=== PATIENT | male | born 1985 | race Caucasian/White ===

== ENCOUNTER 2020-03-24 17:01 | Outpatient (REF) | payer OTHER, SELFPAY | END 2020-03-24 17:02 | disposition home or self-care (01) | LOC: HO.LAB 17:01 | PROVIDERS: Visit Provider Internal Medicine | DX: Z20.828 Contact with and (suspected) exposure to other viral communicable diseases (principal) | CPT/HCPCS: 87635 ==

== ENCOUNTER 2022-03-20 15:08 | Emergency (ER) | payer OTHER, SELFPAY ==
--- NOTE | ~2022-03-20 | XR_ITS ---
EXAMINATION: XR CHEST CLINICAL INFORMATION: Status post fall with chest trauma. COMPARISON: 04/20/2019 chest radiographs. TECHNIQUE: Frontal view of the chest was obtained. FINDINGS: No significant abnormality is noted involving the heart, lungs, mediastinum, bony thorax or soft tissues. XR/XR chest 1V IMPRESSION: No acute cardiopulmonary process.
--- NOTE | ~2022-03-20 | XR_ITS ---
EXAMINATION: XR KNEE, RIGHT CLINICAL INFORMATION: Right knee pain status post fall. COMPARISON: None TECHNIQUE: Four views of the right knee. FINDINGS: Bones and soft tissues are normal. No fracture or joint effusion. Alignment is anatomic. Joint spaces are well maintained. No abnormal soft tissue calcification. XR/XR knee RT 4V IMPRESSION: Unremarkable right knee.
--- NOTE | ~2022-03-20 | CT_ITS ---
EXAMINATION: NONCONTRAST HEAD CT NONCONTRAST CERVICAL SPINE CT INDICATION INFORMATION: Fall with head strike and loss of consciousness. Neck pain COMPARISON: None TECHNIQUE: Separate noncontrast CT examinations of the head and cervical spine were performed. Coronal and sagittal images were created for each examination at the technologist workstation. This CT examination was performed using dose optimization techniques as appropriate, variously including the following: *Automated exposure control *Adjustment of mA and/or kV according to patient size (this includes techniques or standardized protocols for targeted exams where dose is matched to indication/reason for exam; i.e. extremities or head) *Use of iterative reconstruction technique DLP: 1351 mGy-cm FINDINGS: HEAD: No intra or extra-axial fluid collection, hemorrhage, or mass. No ventriculomegaly. No midline shift or herniation. Basal cisterns are patent. Moody-white matter differentiation is maintained. No territorial encephalomalacia. No significant volume loss. There is no abnormal attenuation within the brain parenchyma. No calvarial fracture or soft tissue abnormality. No mucosal thickening in the left maxillary antrum. Mastoid air cells are normally aerated. CERVICAL SPINE: Alignment: Straightening of the normal cervical lordosis. No subluxation. Vertebra: No acute fracture. No prevertebral soft tissue swelling. Degenerative disc disease: Mild cervical spondylosis at C4-C5 with minimal disc height loss and endplate proliferative change. Intervertebral disc heights otherwise maintained. Other findings: Visualized lung apices are clear. Couple small subcentimeter hypodense nodules or cysts noted in the right thyroid lobe of no clinical significance. No cervical lymphadenopathy identified. CT/CT cervical spine wo IV con IMPRESSION: 1. No intracranial hemorrhage or calvarial fracture. 2. No subluxation or acute cervical spine fracture.
--- NOTE | ~2022-03-20 | XR_ITS ---
EXAMINATION: XR HAND, LEFT CLINICAL INFORMATION: Injury with pain COMPARISON: None TECHNIQUE: PA, lateral, and oblique views of the left hand. FINDINGS: The bones and soft tissues are normal. No fracture. Alignment is anatomic. Joint spaces are maintained. No erosions or soft tissue calcifications. XR/XR hand LT 2V IMPRESSION: No acute osseous injury.
--- NOTE | ~2022-03-20 | XR_ITS ---
EXAMINATION: XR ELBOW, LEFT CLINICAL INFORMATION: Left elbow pain status post fall. COMPARISON: None TECHNIQUE: AP, lateral, and oblique views of the left elbow. FINDINGS: No acute fracture or dislocation. The joint spaces are unremarkable. There is no joint effusion. Small posterior olecranon spur. The soft tissues are unremarkable. XR/XR elbow LT min 3V IMPRESSION: Small degenerative posterior olecranon spur without other significant abnormality.
--- NOTE | ~2022-03-20 | XR_ITS ---
EXAMINATION: XR HIP, RIGHT CLINICAL INFORMATION: Right hip pain. COMPARISON: None TECHNIQUE: Two views of the right hip. FINDINGS: Bones and soft tissues are normal. No fracture. Alignment is anatomic. Hip joint space is maintained. XR/XR hip RT w PEL1V IMPRESSION: Unremarkable right hip.
[2022-03-20 16:02] VITALS: BP 166/89; PULSE 86; RESP 18; TEMP 36.4; O2SAT 98; BMI 26.6
--- NOTE | 2022-03-20 16:28 | ED_ITS ---
HPI - Fall General Chief Complaint: Fall Stated Complaint: left pinky injured Time Seen by Provider: 03/20/22 16:25 Source: patient Mode of arrival: ambulatory Limitations: no limitations History of Present Illness HPI Narrative: 37 year old male no significant medical history presents to the emergency department status post fall down 8-10 stairs stairs yesterday. Patient is complaining of head, neck, right knee, left elbow and left pinky pain status post fall. Patient tells me he was walking down the stairs, slipped fell backwards hitting his head with loss of consciousness for a brief moment, he tells me he thinks he landed on his hand experiencing pain to his left pinky, tells me he think he primarily landed on left side. He tells me pain is worse with movement better at rest. Patient is also reporting pain of the R. knee and L elbow again worse with movement better at rest. This time patient endorses diffuse headache w/ intermittent blurred vision ,tells me its normal now. But denies dizziness. Patient is not on blood thinners. Patient denies chest pain, shortness of breath, nausea, vomiting, abdominal pain, weakness. GCS of 15 NIH stroke scale negative Related Data Previous Rx's Medication Instructions Recorded cyclobenzaprine 10 mg tablet 10 mg PO BEDTIME PRN muscle spasm 03/20/22 #7 tabs lidocaine 5 % topical patch 1 patch topical DAILY PRN pain #15 03/20/22 ea Allergies Allergy/AdvReac Type Severity Reaction Status Date / Time No Known Allergies Allergy Unverified 02/18/20 15:46 Review of Systems Review of Systems: Constitutional : No Weight loss, No Fever, No Chills, No Fatigue, No Malaise ENT/Mouth : No sore throat, No Rhinorrhea Eyes: No Eye Pain, No Swelling, No Redness, + intermittent blurred vision Cardiovascular : No Chest Pain, No SOB, No Dyspnea on Exertion, No Orthopnea, No Edema, No Palpitations Respiratory : No Cough, No Sputum, No Wheezing Gastrointestinal : No Nausea, No Vomiting, No Diarrhea, No Constipation, No abdominal Pain, No Hematochezia, No Melena Genitourinary : No Dysuria, No Urinary Frequency, No Hematuria, Musculoskeletal : + joint pain, No Myalgias, + Joint Swelling Skin : No Skin Lesions, No rash Neuro : No Weakness, No Numbness, No Dizziness, + Headache Psych : No Anxiety/Panic, No Depression All other systems reviewed and are negative Yes all other systems are reviewed and are negative [facility] Past Medical History Attestation statement: The following information was validated with the patient. Source: old records reviewed and nursing notes reviewed Social History Social History Alcohol intake: former Patient Tobacco Use Status: Current everyday Tobacco user Smoked in Last 30 Days: Yes Use of substances other than those prescribed or required for medical reasons: No Advance Directives: No Advance Directives Information Provided: No Physical Exam Vital Signs: Vital Signs: Last Vital Signs Temp 98.4 F 03/20/22 18:24 Pulse 90 03/20/22 18:24 Resp 16 03/20/22 18:24 BP 168/102 H 03/20/22 18:24 Pulse Ox 98 03/20/22 18:24 O2 Del Method 03/20/22 18:24 BMI result Body Mass Index 26.6 vss Appearance: Alert.? Oriented X3.? No acute distress.? Head: Normocephalic, atraumatic, no step-offs or deformities Eyes: Pupils equal, round and reactive to light.? ENT: Pharynx normal.? Neck: Normal inspection.? Neck supple.? CVS: Normal heart rate and rhythm.? Pulses normal.? Respiratory: No respiratory distress.? Breath sounds normal.? Abdomen: Soft and nontender.? Skin: Skin warm and dry.? Normal skin color.? Normal skin turgor.? Extremities: No lower extremity edema.? No calf ttp. 5/5 strength to bilateral upper and lower extremities normal range of motion to bilateral hips, knees, elbows, shoulders. No point tenderness to any of the affected body parts. 2+ radial pulses equal bilateral. 2+ dorsalis pedis, posterior tibialis, anterior tibialis pulses equal bilateral. Normal popliteal pulses. Normal sensation to bilateral lower extremities and upper extremities. Left pinky with some overlying swelling and painful range of motion + subjective findings patient reports pain with range of motion of right knee, left elbow left pinky. Back: No midline tenderness, no C-spine tenderness, full range of motion, no CVA tenderness bilaterally Neuro: Oriented X 3.? No motor deficit.? No sensory deficit. CN 2-12 intact . Patient ambulating with steady gait normal coordination. No saddle paresthesias, normal [id number], [id number]. Normal Romberg and pronator drift. Course Reevaluation(s) Reevaluation #1: Xray of the chest, elbow, hand, hip/pelvis, knee with no acute findings. Time: 17:28 Reevaluation #2: Ct of head and neck pending. Patients neuro still non focal no new complaints ambulatory w/o diffiuculty in department. Sign out to NASIM shelton. Time: 18:44 MDM - Fall MDM Narrative Medical decision making narrative: [id number] 37-year-old male presents status post fall ann marie 8-10 stairs complaining of headache, neck pain, left-sided elbow and pinky pain and right-sided knee pain. Patient does report head strike with loss of consciousness. Not on blood thinners. This occurred yesterday. PE Left pinky with some overlying swelling and painful range of motion + subjective findings patient reports pain with range of motion of right knee, left elbow left pinky. GCS of 15 NIH stroke scale negative. Neuro nonfocal, cerebellar intact. RRR. Lungs clear. Abd soft nontender non distended. Unlikely acute ligament or tendon tear. Lilkey sprain/ strain. No signs of pneumothorax or flail chest. Plan- xrays, will obtain ct of head and neck. No indication for scans of chest abd and pelvis at this time. No evidence of trauma to these areas. Will rule out intracranial hemorrhage cervical fractures, dislocations or traumatic subluxations. Will rule out fractures or dislocations of knee, pelvis, elbow. Medical Records Attestation: I reviewed the patient's medical records. Lab Data Attestation: I reviewed the patient's lab results. Critical Care Time Critical Care Time Critical Care Time: No Discharge Plan Discharge Clinical Impression: Strain of left little finger, Knee pain, Elbow pain, Fall, Headache, Hip pain, Concussion with loss of consciousness Patient Disposition: Home, Self-Care Instructions: Finger Sprain (ED), Post Concussion Syndrome (ED) Additional Instructions: Take your medications as prescribed. If you were prescribed antibiotics today, it is important that you take your medication to their entirety, do not skip any doses, do not finish them early. Follow-up with your primary care provider this week. Follow-up with orthopedics if symptoms persist you may require an MRI for evaluation of ligament or tendon injury. Return to the emergency department with new or worsening symptoms. Such as fevers, chills, chest pain, shortness of breath, nausea, vomiting, dizziness, headache, vision changes, lethargy In case of emergency call 911 You can take ibuprofen every 6 hours, Tylenol every 4 as needed for pain or discomfort. Prescriptions: New cyclobenzaprine 10 mg tablet 10 mg PO BEDTIME PRN (Reason: muscle spasm) Qty: 7 0RF lidocaine 5 % adhesive patch,medicated 1 patch topical DAILY PRN (Reason: pain) Qty: 15 0RF Rx Instructions: leave on most painful area for up to 12 hrs Referrals: [facility] – [place] Orth[facility] Surgeons [Provider Group] - 2 weeks Physician,None [Primary Care Provider] - 2 days Stand Alone Forms: Work/School Release
[2022-03-20] MEDS: Morphine Sulfate Immed Release 15 MG TABLET PO (18:23)
[2022-03-20 18:24] VITALS: BP 168/102; PULSE 90; RESP 16; TEMP 36.9; O2SAT 98
== END 2022-03-20 20:00 | disposition home or self-care (01) ==
PROVIDERS: Emergency Provider Emergency Medicine
DX: S06.0XAA Concussion with loss of consciousness status unknown, initial encounter (principal); S63.617A Unspecified sprain of left little finger, initial encounter; R51.9 Headache, unspecified; M54.2 Cervicalgia; M25.562 Pain in left knee; M25.561 Pain in right knee; M25.552 Pain in left hip; M25.551 Pain in right hip; R07.89 Other chest pain; W10.9XXA Fall (on) (from) unspecified stairs and steps, initial encounter; Y93.9 Activity, unspecified; Y92.9 Unspecified place or not applicable; Y99.9 Unspecified external cause status; Z79.899 Other long term (current) drug therapy
CPT/HCPCS: 29130; 70450; 71045; 72125; 73080; 73120; 73502; 73564; 99284

== ENCOUNTER 2022-03-27 15:10 | Emergency (ER) | payer OTHER, SELFPAY ==
[2022-03-27 16:45] VITALS: BP 140/92; TEMP 36.4; BMI 26.5
--- NOTE | 2022-03-27 20:50 | ED_ITS ---
HPI - Extremity Problem General Chief complaint: Extremity Injury, Upper Stated complaint: recast finger, recently broken Time Seen by Provider: 03/27/22 20:49 Source: patient Mode of arrival: ambulatory Limitations: no limitations History of Present Illness HPI Narrative: Patient is a 37-year-old male who presents emergency department for evaluation of a prior left pinky finger injury. He states he was seen here week ago after a fall and he jammed his pinky finger. Was given a finger splint at that time. He states that the finger splint has fallen off and is no longer staying in place. He is requesting a new 1 is he still having pain to the finger with swelling. Additionally, he is requesting a return to work note, as he was diagnosed with a concussion and they will not let him return. He denies he adaches, dizziness, lightheadedness, vision changes, neck pain, neck stiffness, nausea, vomiting, numbness or tingling of the extremities, confusion. Related Data Previous Rx's Medication Instructions Recorded cyclobenzaprine 10 mg tablet 10 mg PO BEDTIME PRN muscle spasm 03/20/22 #7 tabs lidocaine 5 % topical patch 1 patch topical DAILY PRN pain #15 03/20/22 ea Allergies Allergy/AdvReac Type Severity Reaction Status Date / Time No Known Allergies Allergy Unverified 02/18/20 15:46 Review of Systems Review of Systems: Constitutional: No No fever. No chills. No weakness. No fatigue. Skin: No rash. No itching. Cardiovascular: No chest pain. No chest pressure. No palpitations. Respiratory: No shortness of breath. No cough. No sputum production. Gastrointestinal: No nausea. No vomiting. No diarrhea. No abdominal pain. Genitourinary: No burning micturition. No urinary frequency. No incontinence. Neurologic: No headache. No dizziness. No pre-syncope/ syncope. No unilateral weakness. No ataxia. No numbness. No tingling. No change in bowel or bladder control. Musculoskeletal: Positive finger pain Yes all other systems are reviewed and are negative [facility] Past Medical History Attestation statement: The following information was validated with the patient. Source: old records reviewed Social History Social History Alcohol intake: former Patient Tobacco Use Status: Current everyday Tobacco user Advance Directives: No Advance Directives Information Provided: No Physical Exam Vital Signs: Vital Signs: Last Vital Signs Temp 97.6 F 03/27/22 16:45 BP 140/92 H 03/27/22 16:45 O2 Del Method 03/27/22 16:45 BMI result Body Mass Index 26.5 Appearance: Alert.?Oriented to person, place and time. No acute distress.?Normal affect. Eyes: Pupils equal, round and reactive to light.? ENT: Pharynx normal.?? Neck: Normal inspection.? Neck supple.?? CVS: Heart sounds normal. Normal heart rate and rhythm.? Pulses normal.?? Respiratory: No respiratory distress.? Lung sounds clear to auscultation bilaterally?? Abdomen: Soft and non-tender. Normoactive bowel sounds. ? Skin: Skin warm and dry.? Normal skin color.? Extremities: No lower extremity edema.? Left 5th digit with swelling at the PIP, Range of motion is present with extension and flexion though it is painful, cap refill <3 seconds Neuro: Moves all extremities spontaneously. Sensation intact bilaterally. No focal neuro deficits. Ambulates with normal steady gait. Course Course Course Narrative: Patient is a 37-year-old male with no significant past medical history presenting to the emergency department for re-evaluation of a left finger injury and concussion Patient was seen in the emergency department 1 week ago on 03/20/2022 after a fall down stairs, diagnosed with strain of the left digit, and a concussion. Continues to have reported pain and swelling to the left 5th digit, neurovascularly intact, able to fully flex and extend digit. Finger splint reapplied, again advised to contact Orthopedics for outpatient follow-up for evaluation of ligament or tendon injury. Concussive syndrome appears to have resolved. Patient with no focal neurological deficits, no symptoms consistent with concussion. He is well-appearing. Vital signs are stable. Ambulatory with steady gait. Discussed reasons to return back to the emergency department for. Patient discharged in stable condition. MDM - Extremity (Nontraumatic) Medical Records Attestation: I reviewed the patient's medical records. Discharge Plan Discharge Clinical Impression: Finger sprain Patient Disposition: Home, Self-Care Instructions: Finger Sprain (ED) Additional Instructions: As we discussed, please contact Orthopedics to arrange for a follow-up visit regarding the injury to your left pinky finger. Return to emergency department any new or worsening symptoms or concerns. Prescriptions: No Action cyclobenzaprine 10 mg tablet 10 mg PO BEDTIME PRN (Reason: muscle spasm) Qty: 7 0RF lidocaine 5 % adhesive patch,medicated 1 patch topical DAILY PRN (Reason: pain) Qty: 15 0RF Rx Instructions: leave on most painful area for up to 12 hrs Referrals: Vidya Hoover MD [Physician] -
[2022-03-27 21:03] VITALS: BP 147/91; PULSE 99; RESP 14; TEMP 37.1; O2SAT 97
== END 2022-03-27 22:08 | disposition home or self-care (01) ==
PROVIDERS: Emergency Provider Emergency Medicine
DX: S63.617A Unspecified sprain of left little finger, initial encounter (principal); X58.XXXA Exposure to other specified factors, initial encounter; Y93.9 Activity, unspecified; Y92.9 Unspecified place or not applicable; Y99.9 Unspecified external cause status; Z79.899 Other long term (current) drug therapy
CPT/HCPCS: 29130; 99283; 99284

== ENCOUNTER 2022-04-11 08:57 | Outpatient (REF) | payer OTHER, SELFPAY ==
--- NOTE | ~2022-04-11 | XR_ITS ---
EXAMINATION: XR HAND, LEFT CLINICAL INFORMATION: Left hand pain. COMPARISON: 03/20/2022 TECHNIQUE: PA, lateral, and oblique views of the left hand. FINDINGS: The bones and soft tissues are unremarkable. No fracture. Alignment is anatomic. Joint spaces are maintained. No erosions or soft tissue calcifications. XR/XR hand LT min 3V IMPRESSION: No abnormality is seen. Findings unchanged when compared to 03/20/2022.
== END 2022-04-11 08:58 | disposition home or self-care (01) ==
LOC: HO.HOSX 08:57
PROVIDERS: Visit Provider Physician Assistant
DX: S63.275A Dislocation of unspecified interphalangeal joint of left ring finger, initial encounter (principal)
CPT/HCPCS: 73130; 99202; J1100

== ENCOUNTER 2022-05-11 15:30 | Outpatient (RCR) | payer OTHER, SELFPAY ==
--- NOTE | 2022-05-02 16:25 | MHC.OT.EP ---
[address] [phone] Occupational Therapy Plan of Care Date of Evaluation: 05/02/22 Diagnosis: Dislocation of left small finger at PIPjt Assessment: Pt is a 37 yo male 5 wks s/p left small finger dislocation due to a fall down stairs. 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 Thank you once again for your referral.
--- NOTE | 2022-06-08 11:41 | MHC.OT.DC ---
[address] [phone] F: [phone] Occupational Therapy Discharge Note Provider: Angelica Claudio Diagnosis: Dislocation of left small finger at PIPjt Date of Surgery: Date of Evaluation: 05/02/22 Date of Discharge: Treatments to Date: 2 Cancellations to Date: 1 No Shows to Date: 1 Discharge Status: Discharge Summary: Improving pain and ROM. Con't PIPj flexion contracture . Will benefit from added night splint. No showed last scheduled appt Electronically Signed By: Mariama Anguiano OT CHT CLT Reviewed/agree with student documentation: N/A Therapist: Please Sign and return to therapist, thank you for your referral.
== END 2022-06-08 11:42 | disposition home or self-care (01) ==
LOC: HO.OT 15:30
PROVIDERS: Visit Provider Physician Assistant
DX: S63.257A Unspecified dislocation of left little finger, initial encounter (principal)
CPT/HCPCS: 97110; 97165; 97760

== ENCOUNTER 2022-07-24 12:15 | Emergency (ER) | payer OTHER, SELFPAY ==
--- NOTE | ~2022-07-24 | XR_ITS ---
EXAMINATION: XR CHEST CLINICAL INFORMATION: Shortness of breath COMPARISON: X-ray 03/20/2022 TECHNIQUE: Frontal view of the chest was obtained. FINDINGS: The cardiomediastinal silhouette is within normal limits. The lungs are well expanded. There is no focal consolidation, edema, or effusion. No pneumothorax. No acute osseous abnormality. XR/XR chest 1V IMPRESSION: No acute cardiopulmonary process.
[2022-07-24 12:18] VITALS: BP 141/100; PULSE 84; RESP 18; TEMP 36.6; O2SAT 98; BMI 26.5
--- NOTE | 2022-07-24 12:18 | ED_ITS ---
HPI - URI/Sore Throat General Chief Complaint: Upper Respiratory Symptoms Stated Complaint: Sore throat/SOB Time Seen by Provider: 07/24/22 12:56 Related Data Home Medications Medication Instructions Recorded Confirmed losartan 50 mg tablet 50 mg PO DAILY 04/11/22 pantoprazole 40 mg tablet,delayed 40 mg PO DAILY 04/11/22 release Previous Rx's Medication Instructions Recorded cyclobenzaprine 10 mg tablet 10 mg PO BEDTIME PRN muscle spasm 03/20/22 #7 tabs lidocaine 5 % topical patch 1 patch topical DAILY PRN pain #15 03/20/22 ea ibuprofen 600 mg tablet 600 mg PO Q6H PRN pain #20 tabs 07/24/22 Allergies Allergy/AdvReac Type Severity Reaction Status Date / Time No Known Allergies Allergy Unverified 04/11/22 08:37 [facility] Past Medical History Medical History (Updated 07/25/22 @ 00:00 by Deacon Jones) Depression with anxiety Epilepsy Hypertension Sleep disorder Social History Social History (Updated 04/11/22 @ 08:39 by Daya Coppola [facility]) Alcohol intake: former Patient Tobacco Use Status: Current everyday Tobacco user Advance Directives: No Advance Directives Information Provided: Yes Current occupational status: employed 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 Also reports acid reflux +bilateral tonsillar swelling noted. Uvula midline. Lungs CTA Rapid strep, COVID-19/influenza, CXR, GI cocktail ordered Medications Administered Discontinued Medications Generic Name Dose Route Start Last Admin Trade Name Freq PRN Reason Stop Dose Admin Al Hydroxide/Mg Hydroxide 30 ml 07/24/22 12:20 07/24/22 12:49 Magnesium Hydrox/Alum Hydrox 30 Ml Oral.Susp PO 07/24/22 12:21 30 ml ONCE ONE Administration Dexamethasone 10 mg 07/24/22 14:10 07/24/22 14:18 Dexamethasone 2 Mg Tablet PO 07/24/22 14:11 10 mg ONCE ONE Administration Famotidine 20 mg 07/24/22 12:20 07/24/22 12:48 Famotidine 20 Mg Tablet PO 07/24/22 12:21 20 mg ONCE ONE Administration Ibuprofen 600 mg 07/24/22 14:10 07/24/22 14:18 Ibuprofen 600 Mg Tablet PO 07/24/22 14:11 600 mg ONCE ONE Administration Lidocaine HCl 15 ml 07/24/22 12:20 07/24/22 12:50 Lidocaine Hcl Viscous 2 % 15 Ml Solution MUCOUS MEM 07/24/22 12:21 15 ml ONCE ONE Administration Medical Decision Making Lab Data Labs: Lab Results 07/24/22 07/24/22 07/24/22 Range/Units 12:24 12:24 12:24 COVID-19 (BRANDON) Negative (Negative) COVID-19 Clin Com See Note Influenza Type A (JESSENIA) Negative (Negative) Influenza Type B (JESSENIA) Negative (Negative) Influenza A & B Note See Note S. pyogenes GrpA JESSENIA Negative (Negative) Discharge Plan Discharge Clinical Impression: Acute viral syndrome Patient Disposition: Home, Self-Care Additional Instructions: COVID testing was negative today but a negative test does not mean you do not have COVID so be careful as you may be contagious whether it is a virus or whether it has COVID We gave a dose of Decadron which is a steroid that often helps sore throat discomfort within 24 hours Use Tylenol or Motrin if needed There was no sign of any dangerous illness at this moment of time Return any time any worse condition or any concerns Prescriptions: New ibuprofen 600 mg tablet 600 mg PO Q6H PRN (Reason: pain) Qty: 20 0RF No Action cyclobenzaprine 10 mg tablet 10 mg PO BEDTIME PRN (Reason: muscle spasm) Qty: 7 0RF lidocaine 5 % adhesive patch,medicated 1 patch topical DAILY PRN (Reason: pain) Qty: 15 0RF Rx Instructions: leave on most painful area for up to 12 hrs losartan 50 mg tablet 50 mg PO DAILY pantoprazole 40 mg tablet,delayed release (DR/EC) 40 mg PO DAILY Stand Alone Forms: Work/School Release Interventions: ED Discharge Assessment Last Done: 07/24/22 14:22 Discharge Date/Time: 07/24/22 14:23
[2022-07-24 12:45] LABS: IDNOW Serial# 6674DD1D; Strep A Nucleic Acid Negative (Negative)
[2022-07-24] MEDS: Famotidine 20 MG TABLET PO (12:48)
[2022-07-24] MEDS: Magnesium Hydrox/Alum Hydrox 30 ML ORAL.SUSP PO (12:49)
[2022-07-24] MEDS: Lidocaine HCl Viscous 2 % 15 ML SOLUTION MUCOUS MEM (12:50)
[2022-07-24 12:51] LABS: COVID-19 Test Negative (Negative); IDNOW Serial# 16C4AD1C
[2022-07-24 12:56] LABS: IDNOW Serial# 9DB6401D; Influenza A Negative (Negative); Influenza B2 Negative (Negative)
--- NOTE | 2022-07-24 14:11 | ED_ITS ---
HPI - URI/Sore Throat General Chief Complaint: Upper Respiratory Symptoms Stated Complaint: Sore throat/SOB Time Seen by Provider: 07/24/22 12:56 History of Present Illness HPI Narrative: Patient complains of sore throat for a week, he is able to swallow but it hurts, fatigue body aches some runny nose No chest pain no shortness of breath no nausea or vomiting or diarrhea Related Data Home Medications Medication Instructions Recorded Confirmed losartan 50 mg tablet 50 mg PO DAILY 04/11/22 pantoprazole 40 mg tablet,delayed 40 mg PO DAILY 04/11/22 release Previous Rx's Medication Instructions Recorded cyclobenzaprine 10 mg tablet 10 mg PO BEDTIME PRN muscle spasm 03/20/22 #7 tabs lidocaine 5 % topical patch 1 patch topical DAILY PRN pain #15 03/20/22 ea ibuprofen 600 mg tablet 600 mg PO Q6H PRN pain #20 tabs 07/24/22 Allergies Allergy/AdvReac Type Severity Reaction Status Date / Time No Known Allergies Allergy Unverified 04/11/22 08:37 [facility] Past Medical History Source: nursing notes reviewed Medical History (Updated 07/25/22 @ 00:00 by Deacon Jones) Depression with anxiety Epilepsy Hypertension Sleep disorder Social History Social History (Updated 04/11/22 @ 08:39 by Daya Coppola [facility]) Alcohol intake: former Patient Tobacco Use Status: Current everyday Tobacco user Advance Directives: No Advance Directives Information Provided: Yes Current occupational status: employed 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, 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 Physical Exam Vital Signs: Vital Signs: Last Vital Signs Temp 97.8 F 07/24/22 12:18 Pulse 84 07/24/22 12:18 Resp 18 07/24/22 12:18 BP 141/100 H 07/24/22 12:18 Pulse Ox 98 07/24/22 12:18 O2 Del Method 07/24/22 12:18 BMI result Body Mass Index 26.5 General appearance no acute distress Eyes no redness no discharge neck sinuses not tender The pharynx there is no redness swelling or exudate, mucous membranes are moist voice is normal Neck is supple Chest clear to auscultation bilateral Heart no murmur Abdomen soft nontender Extremities range of motion x4 Skin no rash Course Course Course Narrative: Testing for COVID flu and strep were negative, well-appearing patient tolerating p.o. is given a dose of steroid for his throat pain and likely has viral illness and is discharged Medications Administered Discontinued Medications Generic Name Dose Route Start Last Admin Trade Name Angelq PRN Reason Stop Dose Admin Al Hydroxide/Mg Hydroxide 30 ml 07/24/22 12:20 07/24/22 12:49 Magnesium Hydrox/Alum Hydrox 30 Ml Oral.Susp PO 07/24/22 12:21 30 ml ONCE ONE Administration Dexamethasone 10 mg 07/24/22 14:10 07/24/22 14:18 Dexamethasone 2 Mg Tablet PO 07/24/22 14:11 10 mg ONCE ONE Administration Famotidine 20 mg 07/24/22 12:20 07/24/22 12:48 Famotidine 20 Mg Tablet PO 07/24/22 12:21 20 mg ONCE ONE Administration Ibuprofen 600 mg 07/24/22 14:10 07/24/22 14:18 Ibuprofen 600 Mg Tablet PO 07/24/22 14:11 600 mg ONCE ONE Administration Lidocaine HCl 15 ml 07/24/22 12:20 07/24/22 12:50 Lidocaine Hcl Viscous 2 % 15 Ml Solution MUCOUS MEM 07/24/22 12:21 15 ml ONCE ONE Administration Medical Decision Making Lab Data [facility] Lab Attestation statement: I reviewed the patient's lab results. Labs: Lab Results 07/24/22 07/24/22 07/24/22 Range/Units 12:24 12:24 12:24 COVID-19 (BRANDON) Negative (Negative) COVID-19 Clin Com See Note Influenza Type A (JESSENIA) Negative (Negative) Influenza Type B (JESSENIA) Negative (Negative) Influenza A & B Note See Note S. pyogenes GrpA JESSENIA Negative (Negative) Discharge Plan Discharge Clinical Impression: Acute viral syndrome Patient Disposition: Home, Self-Care Additional Instructions: COVID testing was negative today but a negative test does not mean you do not have COVID so be careful as you may be contagious whether it is a virus or whether it has COVID We gave a dose of Decadron which is a steroid that often helps sore throat discomfort within 24 hours Use Tylenol or Motrin if needed There was no sign of any dangerous illness at this moment of time Return any time any worse condition or any concerns Prescriptions: New ibuprofen 600 mg tablet 600 mg PO Q6H PRN (Reason: pain) Qty: 20 0RF No Action cyclobenzaprine 10 mg tablet 10 mg PO BEDTIME PRN (Reason: muscle spasm) Qty: 7 0RF lidocaine 5 % adhesive patch,medicated 1 patch topical DAILY PRN (Reason: pain) Qty: 15 0RF Rx Instructions: leave on most painful area for up to 12 hrs losartan 50 mg tablet 50 mg PO DAILY pantoprazole 40 mg tablet,delayed release (DR/EC) 40 mg PO DAILY Stand Alone Forms: Work/School Release Interventions: ED Discharge Assessment Last Done: 07/24/22 14:22 Discharge Date/Time: 07/24/22 14:23
[2022-07-24] MEDS: dexAMETHasone 2 MG TABLET 10 MG PO (14:18)
[2022-07-24] MEDS: Ibuprofen 600 MG TABLET PO (14:18)
== END 2022-07-24 14:23 | disposition home or self-care (01) ==
PROVIDERS: Physician Assistant; Emergency Provider Emergency Medicine
DX: B34.9 Viral infection, unspecified (principal); J02.9 Acute pharyngitis, unspecified; Z20.822 Contact with and (suspected) exposure to COVID-19; I10 Essential (primary) hypertension; F17.200 Nicotine dependence, unspecified, uncomplicated; Z79.899 Other long term (current) drug therapy
CPT/HCPCS: 71045; 87502; 87635; 87651; 99283; J8540

== ENCOUNTER 2023-03-27 17:28 | Emergency (ER) | payer OTHER, SELFPAY ==
[2023-03-27 18:39] VITALS: BP 158/86; PULSE 93; RESP 20; TEMP 37.1; O2SAT 97; BMI 27.6
--- NOTE | 2023-03-27 18:44 | ED_ITS ---
HPI - General Adult General Chief complaint: Upper Respiratory Symptoms Stated complaint: dry cough, sore throat, sob, rash? Time Seen by Provider: 03/27/23 20:58 Source: patient Mode of arrival: ambulatory Limitations: no limitations History of Present Illness HPI narrative: Patient been having sore throat dry cough last 4 days no fever no running nose no shortness of breath no other family member sick also a small rash on the upper back Related Data Home Medications Medication Instructions Recorded Confirmed losartan 50 mg tablet 50 mg PO DAILY 04/11/22 pantoprazole 40 mg tablet,delayed 40 mg PO DAILY 04/11/22 release Previous Rx's Medication Instructions Recorded cyclobenzaprine 10 mg tablet 10 mg PO BEDTIME PRN muscle spasm 03/20/22 #7 tabs lidocaine 5 % topical patch 1 patch topical DAILY PRN pain #15 03/20/22 ea ibuprofen 600 mg tablet 600 mg PO Q6H PRN pain #20 tabs 07/24/22 benzonatate 200 mg capsule 200 mg PO TID PRN cough #30 caps 03/27/23 cefuroxime axetil 500 mg tablet 500 mg PO BID 10 days #20 tabs 03/27/23 Allergies Allergy/AdvReac Type Severity Reaction Status Date / Time No Known Allergies Allergy Verified 03/27/23 18:39 Review of Systems Review of Systems: Yes all other systems are reviewed and are negative PMFSH Past Medical History Medical History Sleep disorder Depression with anxiety Epilepsy Hypertension Social History Social History Alcohol intake: former Patient Tobacco Use Status: Current everyday Tobacco user Smoked in Last 30 Days: No Advance Directives: No Advance Directives Information Provided: Yes Current occupational status: employed 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 Oriented X3. No acute distress. ENT: Pharynx erythematous Oral Mucosa moist Neck: Normal inspection. Neck supple. CVS: Normal heart rate and rhythm. Pulses normal. Respiratory: No respiratory distress. Equal air entry bilateral, no wheezing/rales/rhonchi Skin: Skin warm and dry. Small spot of erythematous rash on the upper back Extremities: No lower extremity edema. No calf tenderness Neuro: Oriented X 3. Course Course Course Narrative: RME: 38 yold male presents to the ED for cough, sore throat, and bodyaches. patient is well appearing. covid, strep, and infleunza ordered Medications Administered Discontinued Medications Generic Name Dose Route Start Last Admin Trade Name Freq PRN Reason Stop Dose Admin Acetaminophen 650 mg 03/27/23 20:12 03/27/23 20:14 Acetaminophen 325 Mg Tablet PO 03/27/23 20:13 650 mg ONCE ONE Administration Benzonatate 200 mg 03/27/23 21:03 03/27/23 21:07 Benzonatate 100 Mg Capsule PO 03/27/23 21:04 200 mg ONCE ONE Administration Cefuroxime Axetil 500 mg 03/27/23 20:58 03/27/23 21:04 Cefuroxime Axetil 500 Mg Tablet PO 03/27/23 20:59 500 mg ONCE ONE Administration Medical Decision Making Differential Diagnosis Differential Diagnoses: The differential diagnosis associated with the presentation includes Strep throat/COVID/flu/RSV Lab Data MDM Lab Attestation statement: I reviewed the patient's lab results. Labs: Lab Results 03/27/23 03/27/23 Range/Units 20:09 20:10 COVID-19 (BRANDON) Negative (Negative) COVID-19 Clin Com See Note Influenza Type A (JESSENIA) Negative (Negative) Influenza Type B (JESSENIA) Negative (Negative) Influenza A & B Note See Note S. pyogenes GrpA JESSENIA Positive A (Negative) Discharge Plan Discharge Clinical Impression: Strep pharyngitis Patient Disposition: Home, Self-Care Instructions: Strep Throat (ED) Additional Instructions: Drink plenty of fluids Tylenol/Motrin for fever/pain Antibiotic as prescribed Prescriptions: New cefuroxime axetil 500 mg tablet 500 mg PO BID 10 Days Qty: 20 0RF benzonatate 200 mg capsule 200 mg PO TID PRN (Reason: cough) Qty: 30 0RF No Action ibuprofen 600 mg tablet 600 mg PO Q6H PRN (Reason: pain) Qty: 20 0RF cyclobenzaprine 10 mg tablet 10 mg PO BEDTIME PRN (Reason: muscle spasm) Qty: 7 0RF lidocaine 5 % adhesive patch,medicated 1 patch topical DAILY PRN (Reason: pain) Qty: 15 0RF Rx Instructions: leave on most painful area for up to 12 hrs losartan 50 mg tablet 50 mg PO DAILY pantoprazole 40 mg tablet,delayed release (DR/EC) 40 mg PO DAILY Stand Alone Forms: Work/School Release Interventions: ED Discharge Assessment Last Done: 03/27/23 21:41 Discharge Date/Time: 03/27/23 21:45
[2023-03-27 20:12] VITALS: BP 149/92; PULSE 94; RESP 18; TEMP 37.6; O2SAT 97
[2023-03-27] MEDS: Acetaminophen 325 MG TABLET 650 MG PO (20:14)
[2023-03-27 20:29] LABS: IDNOW Serial# 6674DD1D; Strep A Nucleic Acid Positive (Negative)
[2023-03-27 20:38] LABS: IDNOW Serial# 9DB6401D; Influenza A Negative (Negative); Influenza B2 Negative (Negative)
[2023-03-27 20:38] LABS: COVID-19 Test Negative (Negative); IDNOW Serial# 55D5AD1C
[2023-03-27] MEDS: cefuroxime axetiL 500 MG TABLET PO (21:04)
[2023-03-27] MEDS: Benzonatate 100 MG CAPSULE 200 MG PO (21:07)
== END 2023-03-27 21:45 | disposition home or self-care (01) ==
PROVIDERS: Physician Assistant; Emergency Provider Internal Medicine
DX: J02.0 Streptococcal pharyngitis (principal); Z11.52 Encounter for screening for COVID-19; I10 Essential (primary) hypertension; F17.200 Nicotine dependence, unspecified, uncomplicated; Z79.899 Other long term (current) drug therapy
CPT/HCPCS: 87502; 87635; 87651; 99283; 99284

== ENCOUNTER 2023-06-06 14:22 | Emergency (ER) | payer OTHER, SELFPAY ==
[2023-06-06 15:15] VITALS: BP 187/79; PULSE 94; RESP 18; TEMP 36.3; O2SAT 97; BMI 27.3
[2023-06-06 16:49] VITALS: BP 150/81; PULSE 100; RESP 18; TEMP 36.8; O2SAT 94
--- NOTE | 2023-06-06 18:36 | PC.NURSE ---
patient a&ox3, vss, pt c/o 01/10 left foot/leg pain, pt awaiting provider, call ledbetter within reach, will continue to monitor
--- NOTE | 2023-06-06 19:45 | ED.LOWEXIN ---
HPI - Extremity Injury (Lower) General Chief Complaint: Extremity Injury, Lower Stated Complaint: Leg pain Time Seen by Provider: 06/06/23 17:21 Source: patient and RN notes reviewed Mode of arrival: ambulatory Limitations: no limitations History of Present Illness HPI Narrative: This is a 38-year-old male presenting to the emergency department with complaints of left foot pain x several months, worsening over the last several weeks. Patient denies any recent trauma or injury. He states that the pain is sharp an especially hurts when he 1st gets up in the morning. He states that the pain radiates into his left leg. Denies any fevers, chills. He states that he spends prolonged periods of time standing on his feet. No other complaints or concerns at this time. MD complaint: foot injury Onset (ago): week(s) Injury: Left: foot Place: home Relieving factors: nothing Exacerbating factors: weight bearing Other symptoms: none Related Data Home Medications Medication Instructions Recorded Confirmed losartan 50 mg tablet 50 mg PO DAILY 04/11/22 pantoprazole 40 mg tablet,delayed 40 mg PO DAILY 04/11/22 release Previous Rx's Medication Instructions Recorded cyclobenzaprine 10 mg tablet 10 mg PO BEDTIME PRN muscle spasm 03/20/22 #7 tabs lidocaine 5 % topical patch 1 patch topical DAILY PRN pain #15 03/20/22 ea ibuprofen 600 mg tablet 600 mg PO Q6H PRN pain #20 tabs 07/24/22 benzonatate 200 mg capsule 200 mg PO TID PRN cough #30 caps 03/27/23 cefuroxime axetil 500 mg tablet 500 mg PO BID 10 days #20 tabs 03/27/23 ibuprofen 600 mg tablet 600 mg PO Q6H PRN pain #30 tabs 06/06/23 Allergies Allergy/AdvReac Type Severity Reaction Status Date / Time No Known Allergies Allergy Verified 06/06/23 15:21 Review of Systems Review of Systems: Yes all other systems are reviewed and are negative PMFSH Past Medical History Onset Date is defined in the Problem List Problems that require an onset date and time if occurred within 24 hrs of arrival to the ED Aortic Dissection and Rupture; Neurologic impairment; Cardiopulmonary Arrest; Endotracheal Intubation; Insertion or Replacement of Mechanical Circulatory Assist Device Medical History Sleep disorder Depression with anxiety Epilepsy Hypertension Social History Social History Alcohol intake: former Patient Tobacco Use Status: Current everyday Tobacco user Advance Directives: No Advance Directives Information Provided: No Current occupational status: employed 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 No acute distress. HEENT: Normal inspection CVS: Normal heart rate and rhythm. Pulses normal. Respiratory: No respiratory distress Skin: Warm, dry, no rashes noted to exposed skin. Normal skin color. Normal skin turgor. Extremities: Tenderness to palpation along the left calcaneus into the left plantar fascia. DP pulses 2+. Neuro: Oriented X 3. No motor deficit. No sensory deficit. Course Reevaluation(s) Reevaluation #1: Xrays revealing small esthenophyte at the achilles tendon insertion site. He has no ttp over the achilles tendon. Discussed with pt. Sx likely plantar facciitis. Discussed return precautions. Stable for D/C. Time: 19:53 Medical Decision Making Medical Decision Making MDM Narrative: This is a 38-year-old male presenting to the emergency department complaints of left foot pain times several months, worsening over the last several weeks. He denies any recent trauma or injury. On arrival, vital signs within normal limits. Patient has tenderness palpation along the left calcaneus and left plantar fascia. Pain worsens 1st thing in the morning. Symptoms likely due to plantar fasciitis. Patient requesting foot x-ray. Plan: X-ray left foot Differential Diagnosis Differential Diagnoses: The differential diagnosis associated with the presentation includes Plantar fasciitis, heel spur, foot strain, contusion, fracture Radiology Impression Discussion of test interpretation with radiology: I have reviewed the radiologist's reading. Radiologist Impression: EXAMINATION: XR FOOT, LEFT CLINICAL INFORMATION: Foot and heel pain COMPARISON: None available. TECHNIQUE: AP, lateral, and oblique views of the left foot. FINDINGS: The bones and soft tissues are unremarkable. Small enthesophyte present at the insertion of the Achilles tendon. No fracture. Alignment is anatomic. Joint spaces are maintained. XR/XR foot LT min 3V IMPRESSION: Small enthesophyte present at the insertion of the Achilles tendon. Dictated By: Zia Ford MD Discharge Plan Discharge Clinical Impression: Plantar fasciitis Patient Disposition: Home, Self-Care Instructions: Plantar Fasciitis (ED), Plantar Fasciitis Exercises (ED) Additional Instructions: Your seen in the emergency department due to left foot pain. Your symptoms are likely due to something called plantar fasciitis. This is inflammation in the bottom of your foot that can cause pain. Please take prescribed anti-inflammatory as needed for pain. Please wear supportive shoes, perform gentle range of motion, and see attached lares flat for exercises to help with your pain. You may also follow-up with your lining cementer. If any new or worsening symptoms occur including but not limited to fevers, chills, redness or swelling to your foot, please return for re-evaluation. Prescriptions: New ibuprofen 600 mg tablet 600 mg PO Q6H PRN (Reason: pain) Qty: 30 0RF No Action ibuprofen 600 mg tablet 600 mg PO Q6H PRN (Reason: pain) Qty: 20 0RF cyclobenzaprine 10 mg tablet 10 mg PO BEDTIME PRN (Reason: muscle spasm) Qty: 7 0RF lidocaine 5 % adhesive patch,medicated 1 patch topical DAILY PRN (Reason: pain) Qty: 15 0RF Rx Instructions: leave on most painful area for up to 12 hrs cefuroxime axetil 500 mg tablet 500 mg PO BID 10 Days Qty: 20 0RF benzonatate 200 mg capsule 200 mg PO TID PRN (Reason: cough) Qty: 30 0RF losartan 50 mg tablet 50 mg PO DAILY pantoprazole 40 mg tablet,delayed release (DR/EC) 40 mg PO DAILY Stand Alone Forms: Work/School Release Interventions: ED Discharge Assessment Last Done: 06/06/23 21:17 Discharge Date/Time: 06/06/23 21:17
== END 2023-06-06 21:17 | disposition home or self-care (01) ==
PROVIDERS: Emergency Provider Emergency Medicine
DX: M72.2 Plantar fascial fibromatosis (principal); M79.672 Pain in left foot; I10 Essential (primary) hypertension; F17.200 Nicotine dependence, unspecified, uncomplicated
CPT/HCPCS: 73630; 99283

== ENCOUNTER 2023-12-18 11:17 | Emergency (ER) | payer SELFPAY ==
--- NOTE | ~2023-12-18 | XR_ITS ---
EXAMINATION: XR BILATERAL HIPS WITH AP PELVIS CLINICAL INFORMATION: Pain COMPARISON: Radiographs of pelvis and right hip from 03/20/2022 TECHNIQUE: Pelvis, AP view Right hip, 2 views and left hip, 2 views FINDINGS: The osseous pelvic ring remains intact. Alignment is normal the pubic symphysis, hips and sacroiliac joints. Articular cartilage space of each hip is well-preserved. No radiographic findings of any significant degenerative or inflammatory arthropathy at either hip. There is no evidence of sacroiliitis. The soft tissues are unremarkable. XR/XR hip BI w PEL1V IMPRESSION: No acute findings compared to 03/20/2022. No fracture or malalignment at the pelvis/hips.
[2023-12-18 11:49] VITALS: BP 154/94; PULSE 85; RESP 18; TEMP 36.6; O2SAT 97; BMI 30.2
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
[2023-12-18 16:06] LABS: MANUAL DIFF FLAG NO
[2023-12-18] MEDS: Cyclobenzaprine HCl 10 MG TABLET PO (16:06)
[2023-12-18 16:19] LABS: Basophils Percent Auto 0.3 % (0-2); Eosinophils Absolute Auto 0.1 X10*3/uL (0.0-0.4); Eosinophils Percent Auto 1.7 % (0-4); Hematocrit 43.9 % (42.0-52.0); Hemoglobin 14.6 g/dl (14.0-18.0); Imm Gran Abs Auto 0.01 X10*3/uL (0.00-0.03); Imm Gran Pct Auto 0.1 % (0.0-0.4); Lymphocytes Absolute Auto 2.2 X10*3/uL (1.2-4.9); Mean Corpuscular HGB Conc 33.3 g/dl (31.0-36.0); Mean Corpuscular Hemoglobin 29.9 pg (27.0-33.0); Mean Corpuscular Volume 89.8 fL (80.0-98.0); Mean Platelet Volume 9.9 fL (9.4-12.4); Monocytes Absolute Auto 0.7 X10*3/uL (0.1-1.2); Monocytes Percent Auto 10.2 % (2-11); Neutrophils Absolute Auto 3.9 x10*3/uL (2.0-8.3); Neutrophils Percent Auto 55.7 % (45-73); Platelet Count 239 X10*3/uL (160-400); Red Blood Count 4.89 X10*6/uL (4.60-5.80)
[2023-12-18 16:23] LABS: Alanine Aminotransferase 18 U/L (0-40); Albumin Level 4.2 g/dL (3.5-5.0); Alkaline Phosphatase 76 U/L (39-117); Anion Gap 14 (12-20); Aspartate Amino Transferase 14 U/L (5-37); Bilirubin Direct 0.1 mg/dL (0.0-0.5); Bilirubin Total 0.4 mg/dL (0.0-1.0); Blood Urea Nitrogen 14 mg/dL (9-16); Calcium 9.8 mg/dL (8.4-10.2); Carbon Dioxide 26 mmol/L (22-29); Chloride 105 mmol/L (96-108); Creatinine Clr Calc Pharmacy 145.4; Estimated Glomerular Filt Rate > 60; Glucose Random 135 mg/dL (60-115); Lipase 16 U/L (8-78); Sodium 141 mmol/L (135-145); Total Protein 7.3 g/dL (6.5-8.0)
[2023-12-18 16:38] LABS: OBS Int Ctl Valid YES; OBS1 NEGATIVE (NEGATIVE)
[2023-12-18 16:52] VITALS: BP 130/71; PULSE 76; RESP 18; TEMP 36.7; O2SAT 98
[2023-12-18] MEDS: Ondansetron ODT 4 MG TAB.RAPDIS TRANSLINGU (17:08)
[2023-12-18] MEDS: Famotidine 20 MG TABLET PO (17:08)
[2023-12-18 17:19] LABS: Appearance Urine Clear; Color Urine Yellow; Glucose Urine UA Negative (Negative); Leukocyte Esterase Urine Negative (Negative); Nitrite Urine Negative (Negative); PH 6.5 (5.0-9.0); Specific Gravity - Urine >= 1.030 (1.005-1.025); Urine Blood Negative (Negative); Urine Ketones Trace mg/dL (Negative); Urine Protein Trace mg/dL (Neg-Trace)
== END 2023-12-18 17:11 | disposition home or self-care (01) ==
PROVIDERS: Physician Assistant; Emergency Provider Internal Medicine
DX: M54.42 Lumbago with sciatica, left side (principal); M54.41 Lumbago with sciatica, right side; K64.8 Other hemorrhoids; R19.5 Other fecal abnormalities; I10 Essential (primary) hypertension; F17.210 Nicotine dependence, cigarettes, uncomplicated; Z79.899 Other long term (current) drug therapy
CPT/HCPCS: 36415; 73521; 80048; 80076; 81003; 82272; 83690; 85025; 99283

== ENCOUNTER 2024-12-03 15:03 | Emergency (ER) | payer OTHER, SELFPAY ==
--- NOTE | ~2024-12-03 | XR_ITS ---
EXAMINATION: XR CHEST CLINICAL INFORMATION: chest pain COMPARISON: None available. TECHNIQUE: 2 views of the chest were obtained. FINDINGS: No significant abnormality is noted involving the heart, lungs, mediastinum, bony thorax or soft tissues. XR/XR chest 2V IMPRESSION: Unremarkable chest examination. Electronically signed by: Jose Lizama MD 12/03/2024 04:00 PM EDT RP
--- NOTE | 2024-12-03 15:04 | ECG_ITS ---
Test Reason : cp Blood Pressure : */* mmHG Vent. Rate : 78 BPM Atrial Rate : 78 BPM P-R Int : 162 ms QRS Dur : 104 ms QT Int : 378 ms P-R-T Axes : 44 3 -3 degrees QTcB Int : 430 ms Sinus rhythm with Premature atrial complexes Nonspecific T wave abnormality Abnormal ECG When compared with ECG of 20-Feb-2016 23:08, Premature atrial complexes are now Present Referred By: Rick Villalobos Electronically Signed By: MONIK REGAN MD
[2024-12-03 15:21] VITALS: BP 133/86; PULSE 90; RESP 16; TEMP 36.6; O2SAT 95; BMI 28.9
[2024-12-03 15:24] LABS: MANUAL DIFF FLAG NO
[2024-12-03 15:26] LABS: Hematocrit 38.7 % (42.0-52.0); Hemoglobin 13.2 g/dl (14.0-18.0); Imm Gran Abs Auto 0.02 X10*3/uL (0.00-0.03); Imm Gran Pct Auto 0.3 % (0.0-0.4); Lymphocytes Absolute Auto 2.8 X10*3/uL (1.2-4.9); Mean Corpuscular HGB Conc 34.1 g/dl (31.0-36.0); Mean Corpuscular Hemoglobin 29.5 pg (27.0-33.0); Mean Corpuscular Volume 86.6 fL (80.0-98.0); NRBC Abs Auto 0.000 X10*3/uL (0.0-0.012); NRBC Pct Auto 0.0 /100WBC (0.0-0.2); Platelet Count 253 X10*3/uL (160-400); Red Blood Count 4.47 X10*6/uL (4.60-5.80); White Blood Count 8.0 X10*3/uL (4.8-10.8)
--- NOTE | 2024-12-03 15:26 | ED_ITS ---
HPI - Chest Pain General Chief Complaint: Chest Pain Stated Complaint: Chest pain R side, R arm pain Time Seen by Provider: 12/03/24 16:02 History of Present Illness ED Provider: Brandon Sainz MD HPI narrative: This is a 39-year-old male with chronic intermittent chest discomfort slightly more noticeable over the last 24 hours he points to the right side of the chest this is nonexertional fluctuating since last night mostly. No difficulty breathing no pleuritic component. Denies hemoptysis history DVT or PE. He had a stress test remotely that he reports to me is negative. He is quite active and athletic doing boxing and martial arts and never has exertional pain. No recent injuries. Related Data Home Medications ?Medication ?Instructions ?Recorded ?Confirmed losartan 50 mg tablet 50 mg PO DAILY 04/11/22 pantoprazole 40 mg tablet,delayed 40 mg PO DAILY 04/11 release Previous Rx's ?Medication ?Instructions ?Recorded cyclobenzaprine 10 mg tablet 10 mg PO BEDTIME PRN musc le spasm 03/20/22 #7 tabs lidocaine 5 % topical patch 1 patch topical DAILY PRN pain #15 03/20/22 ea ibuprofen 600 mg tablet 600 mg PO Q6H PRN pain #20 t abs 07/24/22 benzonatate 200 mg capsule 200 mg PO TID PRN cough #30 caps 03/27/23 cefuroxime axetil 500 mg tablet 500 mg PO BID 10 days #20 tabs 03/27/23 ibuprofen 600 mg tablet 600 mg PO Q6H PRN pain #30 t abs 06/06/23 acetaminophen 500 mg tablet 500 mg PO Q6H PRN fever or pain 12/18/23 (Tylenol Extra Strength) #14 tabs cyclobenzaprine 5 mg tablet 5 mg PO Q8H PRN pain (scal e score 12/18/23 7-10) 5 days #14 tabs lidocaine 5 % topical patch 1 patch topical DAILY PRN pain #30 12/18/23 (Lidoderm) ea Allergies Allergy/AdvReac Type Severity Reaction Status Date / Time No Known Allergies Allergy Verified 12/03/24 15:23 FOR[facility]LY [facility], [facility] Past Medical History Medical History Sleep disorder Depression with anxiety Epilepsy Hypertension Social History Social History Alcohol intake: former Patient Tobacco Use Status: Current everyday Tobacco user Advance Directives: No Advance Directives Information Provided: No Do you have a plan to hurt others: No Plan Current occupational status: employed 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 Head: Atraumatic Eyes: Anicteric, Normal conjunctiva. ENT: Moist mucosa, no pallor. ? Neck: Supple. Skin: ?No observable rash or bruising on exposed or examined skin Respiratory: Breathing comfortably, No distress.Clear to auscultation bilaterally, symmetric chest expansion, No wheeze, rales, ronchi. Cardiovascular: Regular rate and rhythm. No murmurs or rub. Well perfused periphery, warm extremities. No edema. ?Mild discomfort with palpation of the right pectoral region no bruising or crepitus Abdominal: No FOCAL TENDERNESS. Soft, no objective distension. No palpable masses or obvious organomegaly. ?No guarding, no rebound tenderness or other peritoneal findings. : No flank tenderness. Neuro: Alert. Gross movement of all extremities intact. ? Psych: Calm. Cooperative. MSK: No grossly visible deformity. Well-perfused right upper extremity soft compartments neurovascularly intact Vital signs: See flowsheet Course Course Course Narrative: RmE; 39-year-old male presents to ED for right-sided chest pain radiating down right arm with numbness also congestion sore throat and difficulty swallowing. Patient denies any fever or chills. Patient denies any pleurisy labs EKG ordered Procedures Procedure Narrative Procedure Narrative: EMERGENCY ULTRASOUND INTERPRETATION-Limited Echocardiography [This study was ordered, performed, and interpreted by myself. The study reveals: Impression: NORMAL LV FUNCTION, NO RV DYSFUNCTION, NO PERICARDIAL EFFUSION] [Emergent Cardiac for Indication: Views Used: PLAX, PSSA, A4, SX, IVC Pericardial Effusion/Tamponade Findings: NONE RV Dilation (> LV diam in 4ch apical): NONE Global LV Fxn: NORMAL IVC Dilation and Resp Variation: NORMAL Performed by: MD Emeli Images were stored CPT:64631] Medical Decision Making Medical Decision Making MDM Narrative: Medical Decision Makin-year-old male with no personal known cardiac history, he has chronic chest pain of which today's similar to. It is right-sided and nonexertional and he is quite athletic has a negative stress test in the past. His ECG is nonischemic see below. Troponin x2 negative. MT very unlikely in this scenario. No severe hypertension or character of the pain that is suggest aortic dissection or PE. PERC negative. Close outpatient follow up recommended including stress test he is going to call his [facility] PCP Testing Interpreted Independently: Trop x 2 negative. No actionable lab findings. Point of care echocardiogram see result in procedure section. ECG: Sinus rhythm, PACs. Sinus rhythm rate 8078, QTC 430, no acute ischemic changes. There is concave upward ST elevation V2 and V3 only not consistent with ischemia and no reciprocal changes. Radiology or Lab testing Results Reviewed: Chest x-ray with no acute findings Consults: Not Applicable Independent Historians/External Chart Reviews: Not Applicable Social Determinants of Health Impacting MDM/Planning:Not Applicable Lab Data 12/03/24 15:19 12/03/24 15:18 Labs: Lab Results 12/03/24 12/03/24 12/03/24 Range/Units 15:18 15:19 15:43 WBC 8.0 (4.8-10.8) X10*3/uL RBC 4.47 L (4.60-5.80) X10*6/uL Hgb 13.2 L (14.0-18.0) g/dl Hct 38.7 L (42.0-52.0) % MCV 86.6 (80.0-98.0) fL MCH 29.5 (27.0-33.0) pg MCHC 34.1 (31.0-36.0) g/dl RDW 13.2 (11.0-16.0) % Plt Count 253 (160-400) X10*3/uL MPV 9.8 (9.4-12.4) fL Immature Gran % (Auto) 0.3 (0.0-0.4) % Neut % (Auto) 53.5 (45-73) % Lymph % (Auto) 35.1 (20-40) % Yates % (Auto) 9.8 (2-11) % Eos % (Auto) 1.0 (0-4) % Baso % (Auto) 0.3 (0-2) % Lymph # (Auto) 2.8 (1.2-4.9) X10*3/uL Yates # (Auto) 0.8 (0.1-1.2) X10*3/uL Eos # (Auto) 0.1 (0.0-0.4) X10*3/uL Baso # (Auto) 0.0 (0.0-0.2) X10*3/uL Abs Immat Gran (auto) 0.02 (0.00-0.03) X10*3/uL Absolute Neuts (auto) 4.3 (2.0-8.3) x10*3/uL Absolute Nucleated RBC 0.000 (0.0-0.012) X10*3/uL Nucleated RBC % (auto) 0.0 (0.0-0.2) /100WBC PT 11.2 (10.9-12.4) SEC INR 1.0 (0.9-1.1) APTT 29.0 (26.0-36.8) SEC Sodium 140 (135-145) mmol/L Potassium 3.7 (3.3-5.1) mmol/L Chloride 107 (96-108) mmol/L Carbon Dioxide 24 (22-29) mmol/L Anion Gap 13 (12-20) BUN 13 (9-16) mg/dL Creatinine 0.69 (0.5-1.4) mg/dL Estim Creat Clear Calc 160.2 Estimated GFR > 60 Random Glucose 107 (60-115) mg/dL Calcium 9.4 (8.4-10.2) mg/dL Total Bilirubin 0.5 (0.0-1.0) mg/dL AST 23 (5-37) U/L ALT 22 (0-40) U/L Alkaline Phosphatase 66 (39-117) U/L Troponin I High Sens 11.6 (<3.5-35.0) ng/L B-Natriuretic Peptide < 10 (<100) pg/mL Total Protein 7.6 (6.5-8.0) g/dL Albumin 4.5 (3.5-5.0) g/dL Influenza Type A (PCR) NEGATIVE (Negative) Influenza Type B (PCR) NEGATIVE (Negative) RSV RNA Qual (PCR) NEGATIVE (Negative) SARS-CoV-2 RNA (RT-PCR) NEGATIVE (Negative) S. pyogenes GrpA JESSENIA Negative (Negative) 12/03/24 Range/Units 16:41 WBC (4.8-10.8) X10*3/uL RBC (4.60-5.80) X10*6/uL Hgb (14.0-18.0) g/dl Hct (42.0-52.0) % MCV (80.0-98.0) fL MCH (27.0-33.0) pg MCHC (31.0-36.0) g/dl RDW (11.0-16.0) % Plt Count (160-400) X10*3/uL MPV (9.4-12.4) fL Immature Gran % (Auto) (0.0-0.4) % Neut % (Auto) (45-73) % Lymph % (Auto) (20-40) % Yates % (Auto) (2-11) % Eos % (Auto) (0-4) % Baso % (Auto) (0-2) % Lymph # (Auto) (1.2-4.9) X10*3/uL Yates # (Auto) (0.1-1.2) X10*3/uL Eos # (Auto) (0.0-0.4) X10*3/uL Baso # (Auto) (0.0-0.2) X10*3/uL Abs Immat Gran (auto) (0.00-0.03) X10*3/uL Absolute Neuts (auto) (2.0-8.3) x10*3/uL Absolute Nucleated RBC (0.0-0.012) X10*3/uL Nucleated RBC % (auto) (0.0-0.2) /100WBC PT (10.9-12.4) SEC INR (0.9-1.1) APTT (26.0-36.8) SEC Sodium (135-145) mmol/L Potassium (3.3-5.1) mmol/L Chloride (96-108) mmol/L Carbon Dioxide (22-29) mmol/L Anion Gap (12-20) BUN (9-16) mg/dL Creatinine (0.5-1.4) mg/dL Estim Creat Clear Calc Estimated GFR Random Glucose (60-115) mg/dL Calcium (8.4-10.2) mg/dL Total Bilirubin (0.0-1.0) mg/dL AST (5-37) U/L ALT (0-40) U/L Alkaline Phosphatase (39-117) U/L Troponin I High Sens 13.2 (<3.5-35.0) ng/L B-Natriuretic Peptide (<100) pg/mL Total Protein (6.5-8.0) g/dL Albumin (3.5-5.0) g/dL Influenza Type A (PCR) (Negative) Influenza Type B (PCR) (Negative) RSV RNA Qual (PCR) (Negative) SARS-CoV-2 RNA (RT-PCR) (Negative) S. pyogenes GrpA JESSENIA (Negative) Discharge Plan Discharge Clinical Impression: Chest pain, Atypical chest pain Patient Disposition: Home, Self-Care Instructions: Chest Pain (ED) Additional Instructions: _ DISCHARGE DIAGNOSES: Atypical chest pain HISTORY OF PRESENTATION: ?Chest discomfort since last night on and off EMERGENCY DEPARTMENT COURSE,TESTS, TREATMENTS: While in the ED today you had 2 consecutive heart attack enzyme tests that were negative, chest x-ray that was normal, EKG without concerning findings. You were comfortable without active chest pain DISCHARGE MEDICATIONS: ?[We have made no changes to your regular medication regimen] FOLLOW-UP: ?Call your primary or general physician soon as possible to discuss your symptoms, your ED visit and to discuss follow up plans Call your primary doctor 1st thing tomorrow morning to discuss your outpatient follow up you may need outpatient referral to Cardiology or provocative testing urgently done. INSTRUCTIONS ?& RETURN PRECAUTIONS: If any symptoms change first call your primary physician, if it is after-hours your primary doctors office should have a provider product/industry consultant you can speak with. If the symptoms are severe or very concerning to you then call 911 or return to the ED. Return back to the emergency department if you develop severe constant pain difficulty breathing coughing blood severe swelling in the legs or other significant symptoms we discussed Brandon Sainz MD Emergency Physician [facility] Prescriptions: No Action ibuprofen 600 mg tablet 600 mg PO Q6H PRN (Reason: pain) Qty: 20 0RF cyclobenzaprine 10 mg tablet 10 mg PO BEDTIME PRN (Reason: muscle spasm) Qty: 7 0RF lidocaine 5 % adhesive patch,medicated 1 patch topical DAILY PRN (Reason: pain) Qty: 15 0RF Rx Instructions: leave on most painful area for up to 12 hrs cefuroxime axetil 500 mg tablet 500 mg PO BID 10 Days Qty: 20 0RF benzonatate 200 mg capsule 200 mg PO TID PRN (Reason: cough) Qty: 30 0RF acetaminophen [Tylenol Extra Strength] 500 mg tablet 500 mg PO Q6H PRN (Reason: fever or pain) Qty: 14 0RF lidocaine [Lidoderm] 5 % adhesive patch,medicated 1 patch topical DAILY MDD remove after 12 hours PRN (Reason: pain) Qty: 30 0RF Rx Instructions: leave on most painful area for up to 12 hrs cyclobenzaprine 5 mg tablet 5 mg PO Q8H PRN (Reason: pain (scale score 7-10)) 5 Days Qty: 14 0RF ibuprofen 600 mg tablet 600 mg PO Q6H PRN (Reason: pain) Qty: 30 0RF losartan 50 mg tablet 50 mg PO DAILY pantoprazole 40 mg tablet,delayed release (DR/EC) 40 mg PO DAILY Interventions: ED Discharge Assessment Last Done: 12/03/24 18:10 Discharge Date/Time: 12/03/24 18:14 Print Language: Latvian
[2024-12-03 15:32] LABS: INTERNATIONAL NORM RATIO 1.0 (0.9-1.1); Prothrombin Time 11.2 SEC (10.9-12.4)
[2024-12-03 15:34] LABS: Partial Thromboplastin Time 29.0 SEC (26.0-36.8)
[2024-12-03 15:51] LABS: Alanine Aminotransferase 22 U/L (0-40); Albumin Level 4.5 g/dL (3.5-5.0); Alkaline Phosphatase 66 U/L (39-117); Anion Gap 13 (12-20); Aspartate Amino Transferase 23 U/L (5-37); Blood Urea Nitrogen 13 mg/dL (9-16); Calcium 9.4 mg/dL (8.4-10.2); Carbon Dioxide 24 mmol/L (22-29); Chloride 107 mmol/L (96-108); Creatinine Clr Calc Pharmacy 160.2; Estimated Glomerular Filt Rate > 60; Potassium 3.7 mmol/L (3.3-5.1); Sodium 140 mmol/L (135-145); Total Protein 7.6 g/dL (6.5-8.0)
[2024-12-03 15:55] LABS: B Type Natriuretic Peptide < 10 pg/mL (<100)
[2024-12-03 15:59] LABS: Troponin-I High Sensitivity 11.6 ng/L (<3.5-35.0)
[2024-12-03 16:01] LABS: IDNOW Serial# 55D5AD1C; Strep A Nucleic Acid Negative (Negative)
[2024-12-03 16:07] VITALS: BP 133/81; PULSE 77; RESP 15
[2024-12-03 16:50] LABS: Resp Syncy Virus RNA Qual PCR NEGATIVE (Negative); SARS COV2 PCR INHOUSE NEGATIVE (Negative)
[2024-12-03 17:06] LABS: Troponin-I High Sensitivity 13.2 ng/L (<3.5-35.0)
[2024-12-03 18:10] VITALS: BP 133/81; PULSE 77; RESP 15; TEMP 36.6
== END 2024-12-03 18:14 | disposition home or self-care (01) ==
PROVIDERS: Physician Assistant; Emergency Provider Emergency Medicine; PCP Internal Medicine
DX: R07.89 Other chest pain (principal); M79.601 Pain in right arm; F17.210 Nicotine dependence, cigarettes, uncomplicated; Z03.818 Encounter for observation for suspected exposure to other biological agents ruled out; Z79.899 Other long term (current) drug therapy
CPT/HCPCS: 36415; 71046; 80053; 83880; 84484; 85025; 85610; 85730; 87637; 87651; 93005; 99283; 99284

== ENCOUNTER → 2024-12-03 15:04 | Outpatient (BNV) | payer OTHER, SELFPAY | PROVIDERS: Emergency Provider Emergency Medicine; Visit Provider Internal Medicine Cardiovascular Disease | DX: I49.1 Atrial premature depolarization (principal) | CPT/HCPCS: 93010 ==

== ENCOUNTER → 2024-12-03 15:05 | Outpatient (BNV) | payer OTHER, SELFPAY | PROVIDERS: Emergency Provider Emergency Medicine; Visit Provider Radiology Diagnostic Radiology | DX: R07.9 Chest pain, unspecified (principal) | CPT/HCPCS: 71046 ==

== ENCOUNTER 2025-02-20 15:15 | Emergency (ER) | payer OTHER, SELFPAY ==
--- NOTE | ~2025-02-20 | XR_ITS ---
CLINICAL HISTORY: pain Radiographs of the lumbar spine, 3 views Comparison: None available Findings: Trace levocurvatur with the apex at L3. No fracture. The vertebral body heights are preserved. There is mild multilevel intervertebral disc space narrowing with trace endplate osteophytosis. Mild lower lumbar facet hypertrophy. The soft tissues are normal. Impression: No acute findings. Mild degenerative change. This document has been electronically signed by: Yashira Schumacher MD on 02/20/2025 16:50:42
--- NOTE | ~2025-02-20 | XR_ITS ---
CLINICAL HISTORY: pain Radiographs of the pelvis and right hip, 3 views Comparison: 12/18/23 Findings: No fracture or dislocation. No degenerative change. No soft tissue swelling. Impression: No acute findings. This document has been electronically signed by: Yashira Schumacher MD on 02/20/2025 16:49:43
[2025-02-20 15:51] VITALS: BP 144/83; PULSE 99; RESP 18; TEMP 36.3; O2SAT 96; BMI 29.5
--- NOTE | 2025-02-20 15:51 | ED_ITS ---
HPI - General Adult General Chief complaint: Back Pain/Injury Stated complaint: right hip & knee pain Time Seen by Provider: 02/20/25 16:54 Source: patient Mode of arrival: ambulatory Limitations: no limitations History of Present Illness ED Provider: CARLIE FARAH PA-C HPI narrative: 39-year-old male with past medical history significant for hypertension, epilepsy and sciatica presents to the ED today for evaluation of acute on chronic right lower back/hip pain x3 years, worsening over the last month. Reports pain radiation down his right buttock to his knee. Admits to history of sciatica on the left. States this feels similar. He has completed physical therapy for this in the past with resolution of symptoms. He has not trialed any [id number] pain medications. Denies new injury or trauma however states I am on my feet a lot at his job. No recent travel or long car rides. Admits to tobacco dependence, smokes around 3-4 cigarettes daily. No hx of IVDU or spinal surgery. Denies saddle anesthesia, bowel or bladder incontinence or retention, numbness/tingling/weakness of the lower extremities. Denies chest pain, palpitations, fever, chills. Of note, patient reported pain radiation to groin in triage. On my interview, patient is denying any groin/ testicular pain. Denies penile lesions/discharge. Denies urinary symptoms. He denies concern for STDs. Related Data Home Medications ?Medication ?Instructions ?Recorded ?Confirmed losartan 50 mg tablet 50 mg PO DAILY 04/11/22 pantoprazole 40 mg tablet,delayed 40 mg PO DAILY 04/11 release Previous Rx's ?Medication ?Instructions ?Recorded cyclobenzaprine 10 mg tablet 10 mg PO BEDTIME PRN musc le spasm 03/20/22 #7 tabs lidocaine 5 % topical patch 1 patch topical DAILY PRN pain #15 03/20/22 ea ibuprofen 600 mg tablet 600 mg PO Q6H PRN pain #20 t abs 07/24/22 benzonatate 200 mg capsule 200 mg PO TID PRN cough #30 caps 03/27/23 cefuroxime axetil 500 mg tablet 500 mg PO BID 10 days #20 tabs 03/27/23 ibuprofen 600 mg tablet 600 mg PO Q6H PRN pain #30 t abs 06/06/23 acetaminophen 500 mg tablet 500 mg PO Q6H PRN fever or pain 12/18/23 (Tylenol Extra Strength) #14 tabs cyclobenzaprine 5 mg tablet 5 mg PO Q8H PRN pain (scal e score 12/18/23 7-10) 5 days #14 tabs lidocaine 5 % topical patch 1 patch topical DAILY PRN pain #30 12/18/23 (Lidoderm) ea cyclobenzaprine 5 mg tablet 5 mg PO Q8H PRN muscle palak n 2 days 02/20/25 #6 tabs lidocaine 5 % topical patch 1 patch topical DAILY #15 ea 02/20/25 (Lidoderm) prednisone 50 mg tablet 50 mg PO DAILY 5 days #5 tab s 02/20/25 Allergies Allergy/AdvReac Type Severity Reaction Status Date / Time No Known Allergies Allergy Verified 02/20/25 15:54 Review of Systems 2 Review of Systems: Yes all other systems are reviewed and are negative [facility] Past Medical History Attestation statement: The following information was validated with the patient. 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 Skin: Warm, dry, intact. No rashes or lesions. Head: Normocephalic, atraumatic. EENT: Hearing is intact b/l. Conjunctiva clear. Sclera is anicteric. PERRLA. EOM intact. Moist mucous membranes.? Neck: Supple without LAD Cardiac: Chest wall symmetric. RRR Lungs: Normal respiratory effort without accessory muscle use. CTA bilaterally Abdomen: Soft, non-tender, non-distended. No rebound tenderness or guarding. Positive BS x4. no cvat. no palpable abdominal or inguinal hernia. Back: No midline spinous tenderness or step-off deformity. Positive straight leg raise on right. Ext: no pitting edema, no calf tenderness bilaterally. FROM intact throughout. Neuro: AOx3. Normal speech. Ambulating with steady gait. Course Course Course Narrative: This is an RME: Additional HPI, ROS, PE not included below will be deferred to primary provider. RME assessment and note performed by: Alejandra Grove PA-C This is a [id number]-male, with a hx of HTN, epilepsy, and sciatica, who presents to the ER with complaints of right hip pain and right knee pain x 3 years, worsening over the last month. No new injury, trauma. Patient also reports right sided groin pain. No urinary symptoms. Denies concerns for sexually transmitted infections. Plan: X-rays, basic labs, UA, further ER evaluation needed. Reevaluation(s) Reevaluation #1: CBC without leukocytosis or left shift. No anemia. H&H stable. Chemistry without acute electrolyte abnormality requiring intervention. No BARTOLO. Random glucose 190, no anion gap. Liver function at baseline. Urine not infected. X- ray lumbar spine and right hip/pelvis showing degenerative changes. No acute fracture or other osseous abnormalities. > Wells score 0 - DVT unlikely. > patient's presentation is consistent with sciatica. He has a follow up appointment with his PCP in 2 days for referral for PT. He has not trialed any [id number] meds for his pain. Will send him home with Flexeril and prednisone. Patient has remained stable throughout ED visit today. Discussed worrisome signs and symptoms and when to return to the ED. All questions answered at this time. Patient is agreeable with disposition and stable for discharge. Medications Administered Discontinued Medications Generic Name Dose Route Start Last Admin Trade Name Freq PRN Reason Stop Dose Admin Ketorolac Tromethamine 30 mg 02/20/25 17:13 02/20/25 17:58 Ketorolac Tromethamine 30 Mg/Ml Vial IM 02/20/25 17:14 30 mg ONCE ONE Administration Medical Decision Making Medical Decision Making [facility] Narrative: 39-year-old male with past medical history significant for hypertension, epilepsy and sciatica presents to the ED today for evaluation of acute on chronic right lower back/hip pain x3 years, worsening over the last month. Patient is hypertensive, vitals otherwise WNL. He is well-appearing and in no acute distress, eating Ball's on the exam bed. Has a midline spinous tenderness or step-off deformity. He has positive straight leg raise on right. Differential diagnosis inclucdes osteoarthritis, bursitis, sciatica, lumbago, MSK sprain/strain, muscle spasm, tendonitis. Presentation not consistent with gout, pseudogout. Unlikely cauda equina, Guillain-Timblin, epidural abscess, cord compression. Presentation not consistent with DVT. Basic labs, UA and imaging ordered from triage. CT/NG was also ordered however I have canceled this. He has no symptoms and he is not concerned with STDs. I have low suspicion for STI. Toradol ordered for pain control. Differential Diagnosis Differential Diagnoses: The differential diagnosis associated with the presentation includes as above. Admission/Observation not indicated. Lab Data [facility] Lab Attestation statement: I reviewed the patient's lab results. As above 02/20/25 16:20 02/20/25 16:20 Labs: Lab Results 02/20/25 02/20/25 Range/Units 16:20 17:20 WBC 8.7 (4.8-10.8) X10*3/uL RBC 4.90 (4.60-5.80) X10*6/uL Hgb 14.6 (14.0-18.0) g/dl Hct 42.8 (42.0-52.0) % MCV 87.3 (80.0-98.0) fL MCH 29.8 (27.0-33.0) pg MCHC 34.1 (31.0-36.0) g/dl RDW 12.7 (11.0-16.0) % Plt Count 251 (160-400) X10*3/uL MPV 10.0 (9.4-12.4) fL Immature Gran % (Auto) 0.2 (0.0-0.4) % Neut % (Auto) 57.2 (45-73) % Lymph % (Auto) 32.8 (20-40) % [place] % (Auto) 8.6 (2-11) % Eos % (Auto) 1.0 (0-4) % Baso % (Auto) 0.2 (0-2) % Lymph # (Auto) 2.9 (1.2-4.9) X10*3/uL [place] # (Auto) 0.8 (0.1-1.2) X10*3/uL Eos # (Auto) 0.1 (0.0-0.4) X10*3/uL Baso # (Auto) 0.0 (0.0-0.2) X10*3/uL Abs Immat Gran (auto) 0.02 (0.00-0.03) X10*3/uL Absolute Neuts (auto) 5.0 (2.0-8.3) x10*3/uL Absolute Nucleated RBC 0.000 (0.0-0.012) X10*3/uL Nucleated RBC % (auto) 0.0 (0.0-0.2) /100WBC Sodium 142 (135-145) mmol/L Potassium 4.0 (3.3-5.1) mmol/L Chloride 105 (96-108) mmol/L Carbon Dioxide 29 (22-29) mmol/L Anion Gap 12 (12-20) BUN 16 (9-16) mg/dL Creatinine 1.22 (0.5-1.4) mg/dL Estim Creat Clear Calc 91.4 Estimated GFR > 60 Random Glucose 190 H (60-115) mg/dL Calcium 9.8 (8.4-10.2) mg/dL Total Bilirubin 0.4 (0.0-1.0) mg/dL AST 22 (5-37) U/L ALT 23 (0-40) U/L Alkaline Phosphatase 75 (39-117) U/L Total Protein 7.7 (6.5-8.0) g/dL Albumin 4.5 (3.5-5.0) g/dL Urine Color Yellow Urine Appearance Clear Urine pH 5.5 (5.0-9.0) Ur Specific [place] >= 1.030 H (1.005-1.025) Urine Protein Trace (Neg-Trace) mg/dL Urine Glucose (UA) 100 H (Negative) mg/dL Urine Ketones 15 (Negative) mg/dL Urine Blood Negative (Negative) Urine Nitrite Negative (Negative) Ur Leukocyte Esterase Negative (Negative) Independent Interpretation I performed an independent interpretation of an: Plain X-Ray Interpretation: X-ray lumbar spine without fracture X-ray right hip/pelvis without fracture Radiology Impression Discussion of test interpretation with radiology: I have reviewed the radiologist's reading. Radiologist Impression: Reason for Exam: pain CLINICAL HISTORY: pain Radiographs of the lumbar spine, 3 views Comparison: None available Findings: Trace levocurvatur with the apex at L3. No fracture. The vertebral body heights are preserved. There is mild multilevel intervertebral disc space narrowing with trace endplate osteophytosis. Mild lower lumbar facet hypertrophy. The soft tissues are normal. Impression: No acute findings. Mild degenerative change. This document has been electronically signed by: Yashira Schumacher MD on 02/20/2025 16:50:42 Reason for Exam: pain CLINICAL HISTORY: pain Radiographs of the pelvis and right hip, 3 views Comparison: 12/18/23 Findings: No fracture or dislocation. No degenerative change. No soft tissue swelling. Impression: No acute findings. This document has been electronically signed by: Yashira Schumacher MD on 02/20/2025 16:49:43 External Record Review External record reviewed: Inpatient record Prescription Management I considered prescription management with: Other (Prednisone, Flexeril, lidocaine patch) Chronic Conditions Patient?s care impacted by: Other (sciatica) Social Determinants Patient?s care significantly limited by Social Determinants of Health including: Other Social Determinant of Health Critical Care Time Critical Care Time Critical Care Time: No Discharge Plan Discharge Clinical Impression: Sciatica Patient Disposition: Home, Self-Care Instructions: Sciatica (ED) Additional Instructions: You were evaluated in the Emergency Department today for your back/ hip pain. Your evaluation did not show signs of medical conditions requiring emergent intervention at this time. Avoid bending, lifting, or twisting. Use ice several times per day for 20 minutes at a time for the next 48 hours and then change to heat. I recommend you take 600mg ibuprofen every 6 hours or tylenol 650mg every 6 hours as needed for pain. If needed, you can alternate these medications so that you take one medication every 3 hours. For example, at noon take ibuprofen, then at 3pm take tylenol, then at 6pm take ibuprofen. Flexeril is a muscle relaxer. Take this at night as it makes you drowsy. Do not drive, drink alcohol, or operate machinery while taking it. Prednisone is a steroid that has been sent to your pharmacy. Take this as prescribed for the next 5 days. Lidoderm patches are numbing patches. Apply to painful areas. Follow up with your primary care provider on Saturday as scheduled. You will likely require referral for physical therapy. Return to the Emergency Department if you experience worsening back pain, difficulty walking, fevers, numbness, tingling, incontinence, or any other concerning symptoms. In the case of an emergency call 911. Prescriptions: New prednisone 50 mg tablet 50 mg PO DAILY 5 Days Qty: 5 0RF lidocaine [Lidoderm] 5 % adhesive patch,medicated 1 patch topical DAILY Qty: 15 0RF Rx Instructions: leave on most painful area for up to 12 hrs cyclobenzaprine 5 mg tablet 5 mg PO Q8H PRN (Reason: muscle pain) 2 Days Qty: 6 0RF No Action ibuprofen 600 mg tablet 600 mg PO Q6H PRN (Reason: pain) Qty: 20 0RF cyclobenzaprine 10 mg tablet 10 mg PO BEDTIME PRN (Reason: muscle spasm) Qty: 7 0RF lidocaine 5 % adhesive patch,medicated 1 patch topical DAILY PRN (Reason: pain) Qty: 15 0RF Rx Instructions: leave on most painful area for up to 12 hrs cefuroxime axetil 500 mg tablet 500 mg PO BID 10 Days Qty: 20 0RF benzonatate 200 mg capsule 200 mg PO TID PRN (Reason: cough) Qty: 30 0RF acetaminophen [Tylenol Extra Strength] 500 mg tablet 500 mg PO Q6H PRN (Reason: fever or pain) Qty: 14 0RF lidocaine [Lidoderm] 5 % adhesive patch,medicated 1 patch topical DAILY MDD remove after 12 hours PRN (Reason: pain) Qty: 30 0RF Rx Instructions: leave on most painful area for up to 12 hrs cyclobenzaprine 5 mg tablet 5 mg PO Q8H PRN (Reason: pain (scale score 7-10)) 5 Days Qty: 14 0RF ibuprofen 600 mg tablet 600 mg PO Q6H PRN (Reason: pain) Qty: 30 0RF losartan 50 mg tablet 50 mg PO DAILY pantoprazole 40 mg tablet,delayed release (DR/EC) 40 mg PO DAILY Referrals: Wilfrid Peralta MD [Primary Care Provider, Internal Medicine] Interventions: ED Discharge Assessment Last Done: 02/20/25 18:39 Print Language: [place]
[2025-02-20 16:24] LABS: MANUAL DIFF FLAG NO
[2025-02-20 16:26] LABS: Hematocrit 42.8 % (42.0-52.0); Hemoglobin 14.6 g/dl (14.0-18.0); Imm Gran Abs Auto 0.02 X10*3/uL (0.00-0.03); Imm Gran Pct Auto 0.2 % (0.0-0.4); Lymphocytes Absolute Auto 2.9 X10*3/uL (1.2-4.9); Mean Corpuscular HGB Conc 34.1 g/dl (31.0-36.0); Mean Corpuscular Hemoglobin 29.8 pg (27.0-33.0); Mean Corpuscular Volume 87.3 fL (80.0-98.0); NRBC Abs Auto 0.000 X10*3/uL (0.0-0.012); NRBC Pct Auto 0.0 /100WBC (0.0-0.2); Platelet Count 251 X10*3/uL (160-400); Red Blood Count 4.90 X10*6/uL (4.60-5.80); White Blood Count 8.7 X10*3/uL (4.8-10.8)
--- OUTSIDE RECORDS SUMMARY | 2025-02-20 16:34 | XMS_ITS | Clinical Summary ---
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 30 tablet 3 10/21/2024 Active blood sugar diagnostic (FreeStyle Lite Strips) test strip Blood sugar checks 1-2 times a day 200 each 3 10/21/2024 Active freestyle (FreeStyle Lancets) 28 gauge lancets Blood sugar checks 1-2 times a day 200 each 3 10/21/2024 Active losartan (COZAAR) 50 mg tablet Take 1 tablet (50 mg total) by mouth 1 (one) time each day. 90 tablet 1 10/21/2024 Active blood-glucose meter kit Blood sugar checks 1-2 times a day 1 each 10/21/2024 Active omeprazole (PriLOSEC) [address] capsule Take 1 capsule (40 mg total) by mouth 1 (one) time each day. Do not crush or chew. 90 each 1 10/21/2024 Active metFORMIN XR (GLUCOPHAGE-XR) 500 mg 24 hr tablet Take 1 tablet (500 mg total) by mouth 1 (one) time each day with breakfast. Do not crush, chew, or split. 90 each 1 10/21/2024 Active busPIRone (BUSPAR) 5 mg tablet Take 1 tablet (5 mg total) by mouth 2 (two) times a day if needed (Anxiety). 60 each 3 10/21/2024 Active Active Problems Problem Noted Date Diagnosed Date Hyperlipidemia 06/30/2020 Overweight 04/03/2020 Gastroesophageal reflux disease 03/31/2020 Immunizations Name Administration Dates Next Due Influenza Quadravalent, MDCK , 0.5ml, preservative free (Flucelvax) 6mo and older 03/31/2020 Tdap Tetanus diptheria acell ular pertussis (Boostrix; Adacel) 7yo and older 10/21/2024 Surgical History Surgery Date Site/Laterality Comments NO PAST SURGERIES Medical History Medical History Date Comments Hypertension DM (diabetes mellitus) ([facility] V24, [facility] V28 ) Hyperlipidemia GERD (gastroesophageal reflux disease) Family History Medical History Relation Name Comments Hypertension Father Breast cancer Maternal Grandmother COPD Mother former smoker Diabetes Mother Hypertension Mother Colon cancer Paternal Grandfather Lung cancer Paternal Grandmother Relation Name Status Comments Brother Alive Daughter Alive Father Alive Maternal Grandmother Mother Alive Paternal Grandfather Paternal Grandmother Sister Alive Son Alive Social History Tobacco Use Types Packs/Day Years Used Date Smoking Tobacco: Every Day Cigarettes Smokeless Tobacco: Never Tobacco Cessation:Ready to Q uit: Not Asked; Counseling Given: Not Answered Alcohol Use Standard Drinks/Week Comments Not Currently 0 (1 standard drink = 0.6 oz pur e alcohol) Housing Instability Answer Date Recorde d Are you worried that in the next 2 months you may not have stable housing? Yes 10/20/2024 Food Access & Nutrition Answer Date Rec orded Do you have access to a vari ety of food including fruits and vegetables? Yes 10/20/2024 Access to Healthcare Answer Date Record ed Within the last 3 months, esteban gordon many times did you visit the emergency department for your medical care? 2 10/20/2024 Health Literacy Answer Date Recorded How often do you need to hav e someone help you when you read instructions, pamphlets, or other written material from your doctor or pharmacy? Rarely 10/20/2024 Caregiver: How often do you need to have someone help you when you read instructions, pamphlets, or other written material from your doctor or pharmacy? Not on file 10/20/2024 Financial Risk Answer Date Recorded How hard is it for you to pa y for the very basics like food, housing, medical care, and air conditioning / heating? Very hard 10/20/2024 Transportation Answer Date Recorded Has the lack of transportati on kept you from meetings, work, or from getting things needed for daily living? Yes Has the lack of transportati on kept you from medical appointments or from getting medications? Yes 10/20/2024 Social Isolation Answer Date Recorded How often do you feel lonely or isolated from th ose around you? Rarely 10/20/2024 Food Risk Answer Date Recorded Within the past 12 months we worried whether our food would run out before we got money to buy more. Sometimes true 025 Within the past 12 months th e food we bought just didn't last and we didn't have money to get more. Often true 10/20/2024 Dependent Care Answer Date Recorded Do you need help finding or paying for care for your loved ones. For example, children's court magistrate or elderly care for an older adult? No 10/20/2024 Education Answer Date Recorded Do you think completing more education or training, like finishing a GED, going to college, or learning a trade, would be helpful for you? Yes 10/20/2024 Employment and Income Answer Date Recor ded During the last four weeks, have you been actively looking for work? Yes 10/20/2024 Living Situation Answer Date Recorded What is your living situation? 0 10/20/2024 Sex and Gender Information Value Date Recorded Sex Assigned at Not on file Legal Sex Male 3:32 PM EST Gender Identity Not on file Sexual Orientation Not on file Obstetrics History Last Filed Vital Signs Vital Sign Reading Time Taken Comments Blood Pressure 144/92 10/21/2024 10:17 AM EDT provider to recheck bp Pulse 84 10/21/2024 10:17 AM EDT Temperature 36.6 C (97.8 F) 10/21/2024 10:17 AM EDT Respiratory Rate 14 10/21/2024 10:1 7 AM EDT Oxygen Saturation 98% 10/21/2024 10: 17 AM EDT Inhaled Oxygen Concentration - - Weight 95.7 kg (211 lb) 10/21/2024 10:1 7 AM EDT Height 177.8 cm (5' 10 ) 10/21/2024 10: 17 AM EDT Body Mass Index 30.28 10/21/2024 10:17 AM EDT Plan of Treatment Upcoming Encounters Date Type Department Care Team (Late st Contact Info) Description 02/22/2025 1:30 PM EDT Office Visit Adult Medicine [facility] [address] [place] [address] Wilfrid Peralta MD [address] [place], [place] Health Maintenance Due Date Last Done Comments Hepatitis B Vaccines (1 of 3 - 19+ 3-dose series) 2002 Pneumococcal Vaccine: Pediatrics (0 to 5 Years) and At-Risk Patients (6 to 49 Years) (1 of 2 - PCV) 2002 HIV Screening 05/02/2022 Hepatitis C Screening 05/02/2022 COVID-19 Vaccine ( - 2023-2 5 season) 2025 Influenza Vaccine (#1) 2025 03/31/2020 Social Influencers of Health Screening 10/20/2025 10/20/2024 Hypertension/CHF/CAD Annual BMP Blood Test 10/21/2025 10/21/2024, 08/07/2024, 06/10/2023 Cholesterol Screening (Lipid Panel) 10/21/2029 10/21/2024, 06/10/2023 DTaP,Tdap,and Td Vaccines (2 - Td or Tdap) 10/21/2034 10/21/2024 RSV Immunization Adult Patients (1 - 1-dose 75+ series) 2058 Depression Screening Completed 10/20/2024 HIB Vaccines Aged Out No longer eligi ble based on patient's age to complete this topic HPV Vaccines Aged Out No longer eligi ble based on patient's age to complete this topic Hepatitis A Vaccines Aged Out No long er eligible based on patient's age to complete this topic IPV Vaccines Aged Out No longer eligi ble based on patient's age to complete this topic MMR Vaccines Aged Out No longer eligi ble based on patient's age to complete this topic Meningococcal ACWY Vaccine Aged Out N o longer eligible based on patient's age to complete this topic Meningococcal B Vaccine Aged Out No l onger eligible based on patient's age to complete this topic RSV Immunization Patients Under 20 months Aged Out No longer eligible b ased on patient's age to complete this topic Varicella Vaccines Aged Out No longer eligible based on patient's age to complete this topic Procedures Procedure Name Priority Date/Time Associated Diagnosis Comments BASIC METABOLIC PANEL Routine 10/21/2024 11:30 AM EDT Primary hypertension Physical exam Type 2 diabetes mellitus without complication, without long-term current use of insulin ([facility] V24, [facility] V28) LIPID PANEL WITH REFLEX TO DIRECT LDL Routine 10/21/2024 11:30 AM EDT Physical exam Mixed hyperlipidemia from Last 3 Months or Most Recently Relevant to Health Maintenance Results * (ABNORMAL) Lipid panel with reflex to direct LDL (10/21/2024 11:30 AM EDT) Cholesterol 222(H) 0 - 200 mg/dL LAB CHEMISTRY METHOD 10/21/2024 3:34 PM [facility] Triglycerides 118 0 - 150 mg/dL LAB CHEMISTRY METHOD 10/21/2024 3:34 PM [facility] HDL 46 >=40 mg/dL LAB CHEMISTRY METHOD 10/21/2024 3:34 PM [facility] LDL Calculated 152(H) 0 - 100 mg/dL LAB CHEMISTRY METHOD 10/21/2024 3:34 PM [facility] VLDL Cholesterol Júnior 23.6 mg/dL LAB CHEMISTRY METHOD 10/21/2024 3:34 PM [facility] Non HDL Chol. (LDL+VLDL) 176(H) <145 mg/dL LAB CHEMISTRY METHOD 10/21/2024 3:34 PM [facility] Chol/HDL Ratio 4.8(H) 0.0 - 4.4 LAB CHEMISTRY METHOD 10/21/2024 3:34 PM T [facility] Blood Venous blood specimen / Unknown Venipuncture / Unknown 10/21/2024 11:30 AM EDT 10/21/2024 11:30 AM EDT us Wilfrid Peralta MD LAB BLOOD ORDERABLES Final Result [facility] [address] [place] [address], [place] [phone] * (ABNORMAL) Basic metabolic panel (10/21/2024 11:30 AM EDT) Sodium 139 133 - 145 mmol/L LAB CHEMISTRY METHOD 10/21/2024 3:32 PM [facility] Potassium 4.7 3.5 - 5.5 mmol/L LAB CHEMISTRY METHOD 10/21/2024 3:32 PM [facility] Chloride 106 96 - 110 mmol/L LAB CHEMISTRY METHOD 10/21/2024 3:32 PM [facility] CO2 28 21 - 32 mmol/L LAB CHEMISTRY METHOD 10/21/2024 3:32 PM [facility] Anion Gap 5 3 - 11 LAB CHEMISTRY METHOD 10/21/2024 3:32 PM [facility] Glucose 130(H) 70 - 100 mg/dL LAB CHEMISTRY METHOD 10/21/2024 3:32 PM [facility] BUN 13 5 - 25 mg/dL LAB CHEMISTRY METHOD 10/21/2024 3:32 PM [facility] Creatinine 0.73 0.70 - 1.30 mg/dL LAB CHEMISTRY METHOD 10/21/2024 3:32 PM [facility] eGFR 117 >=60 mL/min/1. 73m2 LAB CHEMISTRY METHOD 10/21/2024 3:32 PM [facility] Comment:Calculation based on the Chronic Kidney Disease Epidemiology Collaboration (CKD-EPI) equation refit without adjustment for race. BUN/Creatinine Ratio 17.8 LAB CHEMISTRY METHOD 10/21/2024 3:32 PM EDT [facility] Calcium 9.3 8.5 - 10.5 mg/dL LAB CHEMISTRY METHOD 10/21/2024 3:32 PM EDT [facility] Blood Venous blood specimen / Unknown Venipuncture / Unknown 10/21/2024 11:30 AM EDT 10/21/2024 11:30 AM EDT us Wilfrid Peralta MD LAB BLOOD ORDERABLES Final Result [facility] [address] [place] [address], from Last 3 Months or Most Recently Relevant to Health Maintenance Insurance [facility] [employer] Care Teams Window Covering Sales Consultant Relationship Specialty Start Date End Date Wilfrid Peralta MD [address] [place] [address] PCP - General Internal Medicine 11/30/21
[2025-02-20 16:36] VITALS: BP 123/84; PULSE 92; RESP 16; O2SAT 95
[2025-02-20 16:39] LABS: Alanine Aminotransferase 23 U/L (0-40); Albumin Level 4.5 g/dL (3.5-5.0); Alkaline Phosphatase 75 U/L (39-117); Anion Gap 12 (12-20); Aspartate Amino Transferase 22 U/L (5-37); Blood Urea Nitrogen 16 mg/dL (9-16); Calcium 9.8 mg/dL (8.4-10.2); Carbon Dioxide 29 mmol/L (22-29); Chloride 105 mmol/L (96-108); Creatinine Clr Calc Pharmacy 91.4; Estimated Glomerular Filt Rate > 60; Potassium 4.0 mmol/L (3.3-5.1); Sodium 142 mmol/L (135-145); Total Protein 7.7 g/dL (6.5-8.0)
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
[2025-02-20 17:30] LABS: Appearance Urine Clear; Glucose Urine UA 100 mg/dL (Negative); PH 5.5 (5.0-9.0); Specific Gravity - Urine >= 1.030 (1.005-1.025)
[2025-02-20 18:39] VITALS: BP 170/83; PULSE 98; RESP 18; TEMP -17.7; TEMP 0; O2SAT 98
== END 2025-02-20 18:39 | disposition home or self-care (01) ==
PROVIDERS: Physician Assistant Medical; Emergency Provider Emergency Medicine Emergency Medical Services; PCP Internal Medicine
DX: M54.30 Sciatica, unspecified side (principal); M54.50 Low back pain, unspecified; M25.551 Pain in right hip
CPT/HCPCS: 36415; 72100; 73502; 80053; 81003; 85025; 96372; 99284; J1885

== ENCOUNTER → 2025-02-20 15:56 | Outpatient (BNV) | payer OTHER, SELFPAY | PROVIDERS: Emergency Provider Emergency Medicine Emergency Medical Services; PCP Internal Medicine; Visit Provider Radiology Diagnostic Radiology | DX: M25.551 Pain in right hip (principal); M54.50 Low back pain, unspecified | CPT/HCPCS: 72100; 73502 ==